=== PATIENT | female | born 1990 | race African-American/Black ===

== ENCOUNTER 2016-05-03 12:17 | Emergency (ER) | payer OTHER ==
[~2016-05-03] VITALS: Ht 167.6 cm; Wt 52.2 kg
[~2016-05-03 12:17] MED LIST: AMOXICILLIN 50500 M1 PO; IRON325; KEFLEX500 MG PO; TYLENOL325 MG
[2016-05-03 12:52] LABS: HEMATOCRIT 38.7 % (37.0-47.0); HEMOGLOBIN 12.4 gm/dL (12.0-15.0); MCH 27.6 pg (26.0-34.0); MCHC 32.1 % (28.0-37.0); MCV 85.7 fL (80.0-100.0); PLATELET COUNT 369 thou/uL (150-400); RBC 4.52 mil/uL (4.20-5.00); RDW 14.4 % (10.5-14.5); WBC 10.5 thou/uL (4.0-11.0)
[2016-05-03 12:52] LABS: URINE BILIRUBIN NEGATIVE (Negative); URINE BLOOD 3+ (Negative); URINE COLOR YELLOW; URINE GLUCOSE-RANDOM* NEGATIVE (Negative); URINE KETONES 3+ (Negative); URINE NITRITE NEGATIVE (Negative); URINE PROTEIN (DIPSTICK) TRACE (Negative); URINE SPECIFIC GRAVITY >= 1.030 (1.003-1.035); URINE UROBILINOGEN 0.2 E.U./dl (0.2-1.0)
[2016-05-03 12:55] LABS: MANUAL DIFF YES
[2016-05-03 12:58] LABS: BACTERIA None Seen /HPF (None Seen); CASTS None Seen /LPF (None Seen); CRYSTALS None Seen /LPF (None Seen); SQUAMOUS 0-3 Few /LPF (0-3); URINE RBC 3-10 Few /HPF (0-2); URINE WBC None Seen /HPF (0-5)
[2016-05-03 13:10] LABS: ABSOLUTE NEUTROPHILS 10.1 thou/uL (1.4-8.2); TOTAL CELL COUNT 100
[2016-05-03 13:29] VITALS: BP 110/64
== END 2016-05-03 13:29 | disposition home or self-care (01) ==
LOC: ER 12:17
PROVIDERS: Physician Assistant
DX: N93.8 Other specified abnormal uterine and vaginal bleeding (principal); F10.99 Alcohol use, unspecified with unspecified alcohol-induced disorder

== ENCOUNTER 2018-09-25 10:01 | Emergency (ER) | payer OTHER ==
[~2018-09-25] VITALS: Ht 167.6 cm; Wt 56.7 kg
[2018-09-25 10:21] VITALS: BP 107/58
[2018-09-25] MEDS ORDERED: BIRTH CONTROL PO (10:24)
== END 2018-09-25 11:16 | disposition home or self-care (01) ==
LOC: ER 10:01
DX: N61.0 Mastitis without abscess (principal)

== ENCOUNTER 2018-12-17 02:56 | Emergency (ER) | payer OTHER ==
[~2018-12-17] VITALS: Ht 167.6 cm; Wt 54.4 kg
[~2018-12-17 02:56] MED LIST changes: +BIRTH CONTROL PO
[2018-12-17 03:40] LABS: URINE BLOOD TRACE (Negative); URINE CLARITY TURBID; URINE COLOR YELLOW; URINE GLUCOSE-RANDOM* NEGATIVE (Negative); URINE KETONES 1+ (Negative); URINE LEUKOCYTES-REFLEX TRACE (Negative); URINE NITRITE-REFLEX NEGATIVE (Negative); URINE PROTEIN (DIPSTICK) 1+ (Negative); URINE SPECIFIC GRAVITY >= 1.030 (1.005-1.035)
[2018-12-17 03:42] LABS: ICTOTEST (BILI CONFIRMATORY) Negative (Negative); URINE BILIRUBIN NEGATIVE (Negative)
[2018-12-17 03:44] LABS: ABSOLUTE NEUTROPHILS 3.2 thou/uL (1.4-8.2); BASOPHILS 0.5 % (0.0-2.0); EOSINOPHILS 1.2 % (0.0-3.0); HEMATOCRIT 35.2 % (37.0-47.0); HEMOGLOBIN 11.9 gm/dL (12.0-15.0); LYMPHOCYTES 25.9 % (24.0-44.0); MCH 28.1 pg (26.0-34.0); MCHC 33.8 g/dL (28.0-37.0); MCV 83.3 fL (80.0-100.0); PLATELET COUNT 297 thou/uL (150-400); POLYS 61.4 % (36.0-66.0); RBC 4.22 mil/uL (4.20-5.00); RDW 12.7 % (10.5-14.5); WBC 5.2 thou/uL (4.0-11.0)
[2018-12-17 03:50] LABS: CALCIUM 9.2 mg/dL (8.5-10.1); CREATININE 0.6 mg/dL (0.6-1.0); POTASSIUM 3.4 mmol/L (3.5-5.1)
[2018-12-17 03:52] LABS: AMORPHOUS URATES Many /LPF (None Seen); BACTERIA-REFLEX None Seen /HPF (None Seen); CASTS None Seen /LPF (None Seen); CRYSTALS None Seen /LPF (None Seen); MUCUS 0-3 Light strn/LPF (None Seen); URINE RBC 0-2 Rare /HPF (0-2); URINE WBC-REFLEX 0-5 Rare /HPF (0-5)
[2018-12-17 03:53] LABS: SQUAMOUS 4-10 Moderate /LPF (0-3)
[2018-12-17 03:56] LABS: ALBUMIN 3.7 g/dL (3.4-5.0); TOTAL BILIRUBIN 0.5 mg/dL (<0.1-1.0); TOTAL PROTEIN 7.4 g/dL (6.4-8.2)
[2018-12-17] MEDS ORDERED: PHENERGAN 25 MG25 M1 PO (04:03)
[2018-12-17] MEDS ORDERED: PROMS25 WY RECTAL (04:03)
[2018-12-17 04:47] VITALS: BP 100/55
== END 2018-12-17 04:47 | disposition home or self-care (01) ==
LOC: ER 02:56
PROVIDERS: Emergency Medicine
DX: O21.0 Mild hyperemesis gravidarum (principal); R10.13 Epigastric pain; Z3A.00 Weeks of gestation of pregnancy not specified

== ENCOUNTER 2020-09-13 18:12 | Emergency (ER) | payer OTHER ==
[~2020-09-13] VITALS: Ht 167.6 cm; Wt 47.6 kg
[~2020-09-13 18:12] MED LIST changes: +PHENERGAN 25 MG25 M1 PO; +PROMS25 WY RECTAL
[2020-09-13 19:08] LABS: ABSOLUTE NEUTROPHILS 5.8 thou/uL (1.4-8.2); BASOPHILS 0.4 % (0.0-2.0); EOSINOPHILS 0.1 % (0.0-3.0); HEMATOCRIT 36.3 % (37.0-47.0); HEMOGLOBIN 11.9 gm/dL (12.0-15.0); LYMPHOCYTES 9.1 % (24.0-44.0); MCH 27.1 pg (26.0-34.0); MCHC 32.8 g/dL (28.0-37.0); MCV 82.7 fL (80.0-100.0); MONOCYTES 3.2 % (1.0-8.0); PLATELET COUNT 327 thou/uL (150-400); POLYS 87.2 % (36.0-66.0); RBC 4.39 mil/uL (4.20-5.00); RDW 14.8 % (10.5-14.5); WBC 6.6 thou/uL (4.0-11.0)
[2020-09-13 19:46] LABS: CALCIUM 9.1 mg/dL (8.5-10.1); CREATININE 0.7 mg/dL (0.6-1.0); POTASSIUM 3.8 mmol/L (3.5-5.1)
[2020-09-13] MEDS ORDERED: ZOFRAN ODT4 MG PO (19:49)
[2020-09-13 19:52] LABS: ALBUMIN 4.5 g/dL (3.4-5.0); TOTAL BILIRUBIN 0.5 mg/dL (0.2-1.0); TOTAL PROTEIN 8.3 g/dL (6.4-8.2)
[2020-09-13 19:57] VITALS: BP 84/45
== END 2020-09-13 19:58 | disposition home or self-care (01) ==
LOC: ER 18:12
PROVIDERS: Physician Assistant
DX: R10.84 Generalized abdominal pain (principal); R11.2 Nausea with vomiting, unspecified; Z79.899 Other long term (current) drug therapy

== ENCOUNTER 2020-12-19 12:33 | Emergency (ER) | payer OTHER ==
[~2020-12-19] VITALS: Ht 152.4 cm; Wt 43.1 kg
[~2020-12-19 12:33] MED LIST changes: +ZOFRAN ODT4 MG PO
[2020-12-19 13:39] LABS: ABSOLUTE NEUTROPHILS 5.3 thou/uL (1.4-8.2); BASOPHILS 0.5 % (0.0-2.0); EOSINOPHILS 1.1 % (0.0-3.0); HEMATOCRIT 33.8 % (37.0-47.0); HEMOGLOBIN 10.6 gm/dL (12.0-15.0); LYMPHOCYTES 15.1 % (24.0-44.0); MCH 26.2 pg (26.0-34.0); MCHC 31.4 g/dL (28.0-37.0); MCV 83.4 fL (80.0-100.0); MONOCYTES 5.4 % (1.0-8.0); PLATELET COUNT 372 thou/uL (150-400); POLYS 77.9 % (36.0-66.0); RBC 4.06 mil/uL (4.20-5.00); RDW 18.4 % (10.5-14.5); WBC 6.8 thou/uL (4.0-11.0)
[2020-12-19 13:46] LABS: URINE BILIRUBIN NEGATIVE (Negative); URINE BLOOD NEGATIVE (Negative); URINE CLARITY CLOUDY; URINE COLOR YELLOW; URINE GLUCOSE-RANDOM* NEGATIVE (Negative); URINE KETONES TRACE (Negative); URINE LEUKOCYTES-REFLEX NEGATIVE (Negative); URINE NITRITE-REFLEX NEGATIVE (Negative); URINE PROTEIN (DIPSTICK) NEGATIVE (Negative); URINE SPECIFIC GRAVITY 1.025 (1.005-1.035); URINE UROBILINOGEN 0.2 E.U./dl (0.2-1.0)
[2020-12-19 13:48] LABS: CALCIUM 9.2 mg/dL (8.5-10.1); CREATININE 0.8 mg/dL (0.6-1.0); POTASSIUM 3.8 mmol/L (3.5-5.1)
[2020-12-19 13:54] LABS: ALBUMIN 4.1 g/dL (3.4-5.0); TOTAL BILIRUBIN 0.3 mg/dL (0.2-1.0); TOTAL PROTEIN 7.5 g/dL (6.4-8.2)
[2020-12-19] MEDS ORDERED: PHENERGAN 25 MG25 M1 PO (16:01)
[2020-12-19] MEDS ORDERED: OMEPRAZOLE 20 M20 M1 PO (16:01)
[2020-12-19] MEDS ORDERED: CARAFATE1 GM/10 ML PO (16:01)
[2020-12-19 16:36] VITALS: BP 98/65
[2020-12-19 16:51] LABS: ANISOCYTOSIS 1+; PLATELET ESTIMATE NORMAL
== END 2020-12-19 16:37 | disposition home or self-care (01) ==
LOC: ER 12:33
PROVIDERS: Emergency Medicine; Physician Assistant
DX: R11.2 Nausea with vomiting, unspecified (principal); E86.0 Dehydration; R10.10 Upper abdominal pain, unspecified; Z90.49 Acquired absence of other specified parts of digestive tract; Z79.899 Other long term (current) drug therapy